=== PATIENT | male | born 1975 | race Caucasian/White ===

== ENCOUNTER 2018-02-20 06:39 | Day surgery (SDC) | payer BC ==
[2014-12-23 07:09] VITALS: BMI 18.6
[2018-02-20 07:37] VITALS: O2SAT 100
[2018-02-20] MEDS ORDERED: Midazolam 2 MG/2 ML VIAL ONE (08:31)
[2018-02-20] MEDS ORDERED: Lidocaine Hydrochloride 5 ML INJ ONE (08:31)
[2018-02-20] MEDS ORDERED: Propofol 10 mg/ml Inj (20 ML) ONE (08:31)
--- NOTE | 2018-02-20 08:36 | CP.SDSHP ---
Same Day Surgery H & P - History Proposed Procedure: EGD Pre-Op Diagnosis: SEE NOTES - Previous Medical/Surgical History Misc: Other Pain: 4.Moderate Pain - Allergies Allergies: Allergies No Known Allergies Allergy (Verified 12/23/14 07:09) - Physical Exam General Appearance: N Vital Signs: Vital Signs 02/20/18 07:30 Temperature 97.4 F L Pulse Rate 55 L Respiratory 20 Rate Blood Pressure 117/80 O2 Sat by Pulse 100 Oximetry Mental Status: Alert & Oriented x3 Neuro: WNL Heart: WNL Lungs: WNL GI: Other - {Optional Preform as Required} Breast: WNL Abdomen: Other Rectal: Other Integument: WNL : WNL Ortho: WNL ENT: WNL - Impression Pt. Evaluated Today:Candidate for Anesthesia & Procedure: Yes - Date & Time Time: 08:36 Short Stay Discharge - Short Stay Discharge Admitting Diagnosis/Reason for Visit: MELENA Disposition: HOME/ ROUTINE
[2018-02-20] MEDS ORDERED: Belladonna-Phenobarbital PO STA (08:43)
[2018-02-20] MEDS ORDERED: Pantoprazole 40 mg EC Tab PO STA (08:44)
[2018-02-20] MEDS ORDERED: Lactated Ringer's 500 ML IV SCH (08:45)
[2018-02-20 09:39] VITALS: RESP 12
[2018-02-20 10:31] VITALS: BP 117/73; PULSE 62; TEMP 98
== END 2018-02-20 10:20 | disposition home or self-care (01) ==
LOC: C.ENDO 06:39
PROVIDERS: ATTEND Specialist
DX: K29.60 Other gastritis without bleeding (principal); K44.9 Diaphragmatic hernia without obstruction or gangrene; K20.9 Esophagitis, unspecified
CPT/HCPCS: 43239; 88305; 88342; J2250; J2704; J7040; J7120

== ENCOUNTER 2018-12-27 06:43 | Day surgery (SDC) | payer BC ==
[2014-12-23 07:09] VITALS: BMI 18.6
[2018-12-27 07:15] VITALS: PULSE 58; RESP 19; TEMP 97.7; O2SAT 100
--- NOTE | 2018-12-27 07:52 | CP.SDSHP ---
Same Day Surgery H & P - History Proposed Procedure: COLONSCOPY Pre-Op Diagnosis: SEE NOTES - Previous Medical/Surgical History Misc: Other Previous Surgical History: COLONSCOPY / I B D. - Allergies Allergies: Allergies No Known Allergies Allergy (Verified 12/23/14 07:09) - Physical Exam General Appearance: N Vital Signs: Vital Signs 12/27/18 07:06 Temperature 97.7 F Pulse Rate 58 L Respiratory 19 Rate Blood Pressure 110/69 O2 Sat by Pulse 100 Oximetry Mental Status: Alert & Oriented x3 Neuro: WNL Heart: WNL Lungs: WNL GI: Other - {Optional Preform as Required} Breast: WNL Abdomen: Other Rectal: Other Integument: WNL : WNL Ortho: WNL ENT: WNL - Impression Pt. Evaluated Today:Candidate for Anesthesia & Procedure: Yes - Date & Time Time: 07:51 Short Stay Discharge - Short Stay Discharge Admitting Diagnosis/Reason for Visit: IRRITABLE BOWEL SYNDROME Disposition: HOME/ ROUTINE
[2018-12-27] MEDS ORDERED: Propofol 10 mg/ml Inj (20 ML) ONE ×2 (08:22→08:28)
[2018-12-27] MEDS ORDERED: Lidocaine Hydrochloride 5 ML INJ ONE (08:27)
[2018-12-27] MEDS ORDERED: MethylPREDNISolone 40 mg Vial IVP ONE (09:00)
[2018-12-27 09:10] VITALS: BP 96/61
[2018-12-27] MEDS ORDERED: Pantoprazole 40 mg EC Tab PO ONE (09:25)
[2018-12-27] MEDS ORDERED: Belladonna-Phenobarbital PO ONE (09:30)
== END 2018-12-27 10:42 | disposition home or self-care (01) ==
LOC: C.ENDO 06:43
PROVIDERS: ATTEND Specialist
DX: Z08 Encounter for follow-up examination after completed treatment for malignant neoplasm (principal); K58.9 Irritable bowel syndrome, unspecified; K51.90 Ulcerative colitis, unspecified, without complications
CPT/HCPCS: 45380; 88305; 88313; 88342; J2704; J2920